=== PATIENT | female | born 2000 | race Caucasian/White ===

== ENCOUNTER 2020-07-06 13:09 | Outpatient (REF) | payer MEDICAID, SELFPAY | END 2020-07-06 13:10 | disposition home or self-care (01) | LOC: HO.LAB 13:09 | PROVIDERS: Visit Provider Internal Medicine | DX: Z20.828 Contact with and (suspected) exposure to other viral communicable diseases (principal) | CPT/HCPCS: 87635 ==

== ENCOUNTER 2021-04-02 15:31 | Outpatient (REF) | payer MEDICAID, SELFPAY | END 2021-04-02 15:32 | disposition home or self-care (01) | LOC: HO.LAB 15:31 | PROVIDERS: PCP Nurse Practitioner Family; Visit Provider Internal Medicine | DX: Z20.822 Contact with and (suspected) exposure to COVID-19 (principal) | CPT/HCPCS: C9803; U0003; U0005 ==

== ENCOUNTER 2022-03-13 20:21 | Emergency (ER) | payer MEDICAID, SELFPAY ==
--- NOTE | 2022-03-13 21:18 | PC.NURSE ---
attempted x 3 to call to triage. no answer. [facility]
== END 2022-03-13 21:18 | disposition left against medical advice (07) ==
PROVIDERS: Emergency Provider Emergency Medicine; PCP Nurse Practitioner Family
DX: S81.811A Laceration without foreign body, right lower leg, initial encounter (principal); X58.XXXA Exposure to other specified factors, initial encounter; Y93.9 Activity, unspecified; Y92.9 Unspecified place or not applicable; Y99.9 Unspecified external cause status